=== PATIENT | female | born 1930 | race Caucasian/White ===

== ENCOUNTER 2019-09-14 16:20 | Emergency (ER) | payer MEDICARE, OTHER ==
--- NOTE | 2019-09-14 16:37 | EDM.PDOC ---
ED HPI GENERAL MEDICAL PROBLEM - General Stated Complaint: SOB/WEAK Time Seen by Provider: 09/14/19 16:29 Source of Information: Reports: Patient History Limitations: Reports: No Limitations - History of Present Illness INITIAL COMMENTS - FREE TEXT/NARRATIVE: 89 year old independent with ADL lives alone at her home comes with concerns for SOb with activities that she has been noticing over the past 3 weeks, report gen weakness, particularly today, denies fever, chills, , report occasional on and off mild swelling around her ankles, and states she feels her entier chest is sore today when she take deep breathing, pt denies cough or any other resp or CV or GI sx or any other medical concerns. - Related Data Allergies Allergy/AdvReac Type Severity Reaction Status Date / Time No Known Allergies Allergy Verified 09/14/19 16:53 ED ROS GENERAL - Review of Systems Review Of Systems: See Below Constitutional: Reports: Weakness, Fatigue. Denies: Fever, Chills HEENT: Reports: No Symptoms Respiratory: Reports: Shortness of Breath. Denies: Wheezing, Pleuritic Chest Pain, Cough, Sputum Cardiovascular: Reports: No Symptoms, Dyspnea on Exertion. Denies: Chest Pain, Claudication, Lightheadedness, Orthopnea, Palpitations, Syncope GI/Abdominal: Reports: No Symptoms : Reports: No Symptoms Musculoskeletal: Reports: No Symptoms Skin: Reports: No Symptoms Neurological: Reports: No Symptoms Psychiatric: Reports: No Symptoms ED EXAM, GENERAL - Physical Exam Exam: See Below Exam Limited By: No Limitations General Appearance: Alert, No Apparent Distress Throat/Mouth: Normal Inspection Head: Atraumatic, Normocephalic Neck: Normal Inspection, Supple, Non-Tender Respiratory/Chest: No Respiratory Distress, Lungs Clear, Normal Breath Sounds Cardiovascular: Normal Peripheral Pulses, Regular Rate, Rhythm, No Edema, No JVD GI/Abdominal: Normal Bowel Sounds, Soft, Non-Tender Extremities: Normal Inspection, Normal Range of Motion, No Pedal Edema Neurological: Alert, Oriented, CN II-XII Intact Psychiatric: Normal Affect Skin Exam: Warm. No: Cyanosis, Diaphoretic, Erythema Course - Vital Signs Text/Narrative:: lab/ CXR results were explained to pt, pt has anemia , cardiomegaly/ clear CXR and elevated BNP, also nonspecific elevation of d-dimes and Cr. her clinical presentation suggest mild CHF that is stable for outpatient mng, recommended a small dose of Lasix / 20 mg daily for few days and follow up with PCP in 2-3 days for re-check. please not that EKG shows no acute findings. Last Recorded V/S: Last Vital Signs Temp 36.7 C 09/14/19 16:20 Pulse 71 09/14/19 16:20 Resp 25 H 09/14/19 16:20 BP 175/71 H 09/14/19 16:20 Pulse Ox 95 09/14/19 16:20 - Orders/Labs/Meds Orders: Active Orders 24 hr Category Date Time Status Chest 1V Frontal [CR] Stat Exams 09/14/19 16:41 Taken INFLUENZA A+B AG SCREEN [RM] Stat Lab 09/14/19 17:00 Received Labs: Laboratory Tests 09/14/19 09/14/19 09/14/19 Range/Units 16:41 16:51 16:51 WBC 8.2 (4.5-12.0) X10-3/uL RBC 3.05 L (3.23-5.20) x10(6)uL Hgb 9.0 L (11.5-15.5) g/dL Hct 26.7 L (30.0-51.3) % MCV 87.6 (80-96) fL MCH 29.6 (27.7-33.6) pg MCHC 33.7 (32.2-35.4) g/dL RDW 14.0 (11.5-15.5) % Plt Count 282 (125-369) X10(3)uL MPV 5.9 L (7.4-10.4) fL Neut % (Auto) 65.8 (46-82) % Lymph % (Auto) 21.3 (13-37) % [place] % (Auto) 7.8 (4-12) % Eos % (Auto) 1 (1.0-5.0) % Baso % (Auto) 4 H (0-2) % Neut # (Auto) 5.4 (1.6-8.3) # Lymph # (Auto) 1.8 (0.6-5.0) # [place] # (Auto) 0.6 (0.0-1.3) # Eos # (Auto) 0.1 (0.0-0.8) # Baso # (Auto) 0.3 H (0.0-0.2) # D-Dimer, Quantitative (0.0-0.59) mg/LFEU Sodium 143 (135-145) mmol/L Potassium 5.2 (3.5-5.3) mmol/L Chloride 106 (100-110) mmol/L Carbon Dioxide 29 (21-32) mmol/L BUN 39 H (7-18) mg/dL Creatinine 1.6 H (0.55-1.02) mg/dL Est Cr Clr Drug Dosing TNP Estimated GFR (MDRD) 30 L (>60) BUN/Creatinine Ratio 24.4 H (9-20) Glucose 128 H (80-116) mg/dL Calcium 9.4 (8.6-10.2) mg/dL Total Bilirubin 0.5 (0.1-1.3) mg/dL AST 28 H (5-25) IU/L ALT 16 (12-36) U/L Alkaline Phosphatase 125 H (56-112) IU/L Troponin I (<0.017-0.056) ng/mL NT-Pro-B Natriuret Pep 75018 H* (<=450) pg/mL Total Protein 7.9 (6.0-8.0) g/dL Albumin 2.8 L (2.9-4.5) g/dL Globulin 5.1 g/dL Albumin/Globulin Ratio 0.6 Urine Color (YELLOW) Urine Appearance (CLEAR) Urine pH (5.0-6.5) Ur Specific [place] (1.010-1.025) Urine Protein (NEGATIVE) mg/dL Urine Glucose (UA) (NORMAL) mg/dL Urine Ketones (NEGATIVE) mg/dL Urine Occult Blood (NEGATIVE) Urine Nitrite (NEGATIVE) Urine Bilirubin (NEGATIVE) Urine Urobilinogen (NEGATIVE) mg/dL Ur Leukocyte Esterase (NEGATIVE) Urine RBC (0-5) Urine WBC (0-5) Ur Squamous Epith Cells (NS,R,O) Urine Bacteria (NS) 09/14/19 09/14/19 09/14/19 Range/Units 16:51 16:51 17:00 WBC (4.5-12.0) X10-3/uL RBC (3.23-5.20) x10(6)uL Hgb (11.5-15.5) g/dL Hct (30.0-51.3) % MCV (80-96) fL MCH (27.7-33.6) pg MCHC (32.2-35.4) g/dL RDW (11.5-15.5) % Plt Count (125-369) X10(3)uL MPV (7.4-10.4) fL Neut % (Auto) (46-82) % Lymph % (Auto) (13-37) % [place] % (Auto) (4-12) % Eos % (Auto) (1.0-5.0) % Baso % (Auto) (0-2) % Neut # (Auto) (1.6-8.3) # Lymph # (Auto) (0.6-5.0) # [place] # (Auto) (0.0-1.3) # Eos # (Auto) (0.0-0.8) # Baso # (Auto) (0.0-0.2) # D-Dimer, Quantitative 1.39 H (0.0-0.59) mg/LFEU Sodium (135-145) mmol/L Potassium (3.5-5.3) mmol/L Chloride (100-110) mmol/L Carbon Dioxide (21-32) mmol/L BUN (7-18) mg/dL Creatinine (0.55-1.02) mg/dL Est Cr Clr Drug Dosing Estimated GFR (MDRD) (>60) BUN/Creatinine Ratio (9-20) Glucose (80-116) mg/dL Calcium (8.6-10.2) mg/dL Total Bilirubin (0.1-1.3) mg/dL AST (5-25) IU/L ALT (12-36) U/L Alkaline Phosphatase (56-112) IU/L Troponin I < 0.017 L (<0.017-0.056) ng/mL NT-Pro-B Natriuret Pep (<=450) pg/mL Total Protein (6.0-8.0) g/dL Albumin (2.9-4.5) g/dL Globulin g/dL Albumin/Globulin Ratio Urine Color Yellow (YELLOW) Urine Appearance Clear (CLEAR) Urine pH 5.0 (5.0-6.5) Ur Specific [place] 1.015 (1.010-1.025) Urine Protein Trace (NEGATIVE) mg/dL Urine Glucose (UA) Normal (NORMAL) mg/dL Urine Ketones Negative (NEGATIVE) mg/dL Urine Occult Blood Moderate H (NEGATIVE) Urine Nitrite Negative (NEGATIVE) Urine Bilirubin Negative (NEGATIVE) Urine Urobilinogen Normal (NEGATIVE) mg/dL Ur Leukocyte Esterase Negative (NEGATIVE) Urine RBC 0-5 (0-5) Urine WBC 0-5 (0-5) Ur Squamous Epith Cells Few H (NS,R,O) Urine Bacteria Few H (NS) Departure - Departure Time of Disposition: 17:41 Disposition: Home, Self-Care 01 Clinical Impression: CHF (congestive heart failure) - Discharge Information Referrals: PCP,None [Ordering Only Provider] - - My Orders Last 24 Hours: My Active Orders 09/14/19 16:41 Chest 1V Frontal [CR] Stat 09/14/19 17:00 INFLUENZA A+B AG SCREEN [RM] Stat - Assessment/Plan Last 24 Hours: My Active Orders 09/14/19 16:41 Chest 1V Frontal [CR] Stat 09/14/19 17:00 INFLUENZA A+B AG SCREEN [RM] Stat
[2019-09-14] MEDS ORDERED: Furosemide 20 MG Tab PO ONE (17:51)
--- NOTE | 2019-09-15 11:49 | CR ---
INDICATION: Short of breath. CHEST: An AP upright portable view of the chest 09/14/19 was compared with and revealed the heart to be enlarged. Upper lung field pulmonary vasculature appeared to be prominent with some interstitial changes suggesting CHF and minimal interstitial lung edema. There is a small pleural effusion suggested with blunting of the left costophrenic angle and minimally the right also. Heavy markings at the lung bases make it difficult to exclude additional minimal patchy bronchopneumonia and pleuritis. Findings suggesting COPD are also noted. A mild dextroconcave scoliosis of the upper middle thoracic spine is also noted with degenerative changes in the mid to lower thoracic spine. Overlying EKG leads are noted. Degenerative changes are noted at the glenohumeral joint on the left. IMPRESSION: 1. ASHD, cardiomegaly, CHF with minimal interstitial lung edema. 2. Possible bibasilar minimal patchy pneumonia and pleuritis. 3. Demineralization compatible with osteoporosis with degenerative changes and scoliosis. MTDD
== END 2019-09-14 18:12 | disposition home or self-care (01) ==
LOC: FB.ED 16:20
DX: I50.9 Heart failure, unspecified (principal); D64.9 Anemia, unspecified; I51.7 Cardiomegaly; R79.0 Abnormal level of blood mineral; R79.1 Abnormal coagulation profile
CPT/HCPCS: 36415; 71045; 80053; 81001; 83880; 84484; 85025; 85379; 87804; 93005; 99285; A9270